=== PATIENT | male | born 1950 | race American Indian/Alaskan Native ===

== ENCOUNTER 2016-12-15 07:56 | Emergency (ER) | payer MEDICARE ==
[2016-12-15 08:26] LABS: Basophils % (Auto) 0.7 % (0.0-1.8); Eosinophils % (Auto) 1.8 % (0.0-4.3); Hematocrit 37.3 % (35.5-45.6); Hemoglobin 12.3 gm/dl (11.8-15.2); Mean Corpuscular HGB Conc 33 % (32-34); Mean Corpuscular Hemoglobin 29 pg (28-32); Mean Corpuscular Volume 88 fl (84-94); Platelet Count 241 K/mm3 (140-440); Red Blood Count 4.23 M/mm3 (3.65-5.03); Red Cell Distribution Width 15.5 % (13.2-15.2)
[2016-12-15 08:39] LABS: Anion Gap 17 mmol/L; BUN/Creatinine Ratio 11.66; Blood Urea Nitrogen 14 mg/dL (9-20); Calcium 9.4 mg/dL (8.4-10.2); Carbon Dioxide 21 mmol/L (22-30); Chloride 104.8 mmol/L (98-107); Glucose 104 mg/dL (75-100); Potassium 4.1 mmol/L (3.6-5.0); Sodium 139 mmol/L (137-145)
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
[2016-12-15] MEDS ORDERED: NACL ONE (12:34)
--- NOTE | 2016-12-15 13:04 | Cat Scan Report ---
CTA chest: History: Pain. Findings: No evidence of aortic aneurysm or pulmonary embolism. No mediastinal mass. No mediastinal or hilar adenopathy. No pleural or pericardial effusion. Bibasilar linear densities suggestive areas of scarring and /or discoid atelectasis. Centrilobular emphysema bilaterally. Multiple bulla on the mediastinal surface. Impression: No evidence of pulmonary embolism. Additional findings as detailed above.
[2016-12-15] MEDS ORDERED: TORADOL IM ONE (14:08)
--- NOTE | 2016-12-15 14:10 | Emergency Department Report ---
ED General Adult HPI - General Chief complaint: Dyspnea/Respdistress Stated complaint: ROBINSON Time Seen by Provider: 12/15/16 12:23 Source: patient Mode of arrival: Ambulatory Limitations: No Limitations - History of Present Illness Initial comments: patient reports right sided pain with coughing -: Gradual, days(s) Location: abdomen (right sided) Radiation: non-radiation Severity scale (0 -10): 1 Quality: aching Consistency: intermittent Improves with: none Worsens with: other (coughing) Associated Symptoms: cough. denies: confusion, chest pain, diaphoresis, fever/ chills, headaches, loss of appetite, malaise, nausea/vomiting, rash, seizure, shortness of breath, syncope, weakness - Related Data Home Medications Medication Instructions Recorded Confirmed Last Taken Aspirin [Adult Low Dose Aspirin EC] 81 mg PO DAILY 12/15/16 12/15/16 12/15/16 Lisinopril [Zestril] 40 mg PO DAILY 12/15/16 12/15/16 12/15/16 Metoprolol Tartrate 37.5 mg PO DAILY 12/15/16 12/15/16 12/15/16 [place]-3 Fatty Acids/Fish Oil [Fish 1 each PO DAILY 12/15/16 12/15/16 12/07/16 Oil] Simvastatin [Zocor TAB] 40 mg PO DAILY 12/15/16 12/15/16 12/15/16 Previous Rx's Medication Instructions Recorded Last Taken Type Ibuprofen [Motrin] 400 mg PO Q8H PRN #12 tablet 12/15/16 Unknown Rx Allergies Allergy/AdvReac Type Severity Reaction Status Date / Time No Known Allergies Allergy Unverified 03/08/15 07:53 ED Review of Systems ROS: Stated complaint: ROBINSON Other details as noted in HPI Other: GENERAL: No weight change, fatigue, weakness, fever, chills, or night sweats SKIN: No changes in skin or hair, no itching, no rashes, no jaundice HEAD: No trauma, headache, or visual changes EYES: No blurriness, tearing, itching, acute visual loss, conjunctival discoloration, or scleral icterus EARS: No hearing loss, tinnitus, vertigo, or earache NOSE: No rhinorrhea, stuffiness, sneezing, itching, or epistaxis MOUTH: No bleeding gums, hoarseness, sore throat, or swelling CARDIAC: No new murmur, chest pain, palpitations, dyspnea on exertion, orthopnea , PND, or edema RESPIRATORY: Coughing. No shortness of breath, wheeze, sputum production, hemoptysis, pneumonia, asthma, bronchitis, or emphysema GI: Right sided flank pain. No change in appetite, nausea, vomiting, dysphagia , change in bowel frequency, diarrhea, constipation, bleeding, hematemesis, melena, hematochezia URINARY: No frequency, urgency, polyuria, dysuria, hematuria, or incontinence MUSCULOSKELETAL: No muscle weakness, joint stiffness, decrease in range of motion, redness, swelling, tenderness NEUROLOGIC: No loss of sensation, numbness, tingling, tremors, weakness, paralysis, seizures HEMATOLOGIC: No anemia, easy bruising, bleeding, petechiae, or purpura ENDOCRINE: No hot or cold intolerance, sweating, polyuria, polydipsia or, polyphagia no thyroid problems PSYCHIATRIC: No change in mood, no anxiety, no depression ED Past Medical Hx - Past Medical History Previous Medical History?: Yes Hx Hypertension: Yes Hx Diabetes: Yes (borderline) Hx Kidney Stones: Yes Additional medical history: gout - Surgical History Past Surgical History?: Yes Hx Coronary Stent: Yes Additional Surgical History: kidney stents, BILATERAL KNEE REPLACEMENTS - Social History Smoking Status: Current Every Day Smoker Substance Use Type: Alcohol - Medications Home Medications: Home Medications Medication Instructions Recorded Confirmed Last Taken Type Aspirin [Adult Low Dose Aspirin EC] 81 mg PO DAILY 12/15/16 12/15/16 12/15/16 History Ibuprofen [Motrin] 400 mg PO Q8H PRN #12 tablet 12/15/16 Unknown Rx Lisinopril [Zestril] 40 mg PO DAILY 12/15/16 12/15/16 12/15/16 History Metoprolol Tartrate 37.5 mg PO DAILY 12/15/16 12/15/16 12/15/16 History [place]-3 Fatty Acids/Fish Oil [Fish 1 each PO DAILY 12/15/16 12/15/16 12/07/16 History Oil] Simvastatin [Zocor TAB] 40 mg PO DAILY 12/15/16 12/15/16 12/15/16 History ED Physical Exam - General Limitations: No Limitations - Other Other exam information: GENERAL: Patient in no acute distress HEAD: Normocephalic, atraumatic EYES: PERRLA, EOM intact, no scleral icterus,no conjunctival hemorrhage, visual castro and acuity wnl, NOSE: No tenderness, discharge, sinus tenderness MOUTH: No erythema, bleeding, exudate HEART: Regular rate and rhythm, no murmur, S1-S2 are auscultated, pulses are symmetric LUNGS: No wheezing, rales, rhonchi, bilateral breath sounds ABDOMEN: Normal bowel sounds, no tenderness, no rebound, no guarding, no masses , no CVA tenderness MUSCULOSKELETAL: Normal joint range of motion, no redness, no swelling, no tenderness NEUROLOGIC: GCS 15, Alert and Oriented, Cranial nerves intact, normal sensation , normal strength, normal gait, no cerebellar deficit PSYCHIATRIC: No homicidal or suicidal ideation, no anxiety, no depression, no hallucinations SKIN: Skin is warm and dry, no wounds, no rashes ED Course Vital Signs 12/15/16 12/15/16 12/15/16 08:05 12:13 12:14 Temperature 98.2 F Pulse Rate 103 H 72 80 Respiratory 24 14 Rate Blood Pressure Blood Pressure 124/77 [Left] O2 Sat by Pulse 98 95 Oximetry 12/15/16 12/15/16 12/15/16 12:16 12:18 12:20 Temperature Pulse Rate 73 77 72 Respiratory 15 17 16 Rate Blood Pressure 111/68 111/68 111/68 Blood Pressure [Left] O2 Sat by Pulse 95 97 99 Oximetry 12/15/16 12/15/16 12/15/16 12:22 12:24 12:25 Temperature Pulse Rate 68 74 Respiratory 21 20 15 Rate Blood Pressure 111/68 111/68 Blood Pressure [Left] O2 Sat by Pulse 99 100 95 Oximetry 12/15/16 12/15/16 12/15/16 12:26 12:28 12:30 Temperature Pulse Rate 76 72 75 Respiratory 27 H 15 13 Rate Blood Pressure 111/68 111/68 111/68 Blood Pressure [Left] O2 Sat by Pulse 99 98 98 Oximetry 12/15/16 12/15/16 12/15/16 12:32 12:33 12:34 Temperature Pulse Rate 69 69 72 Respiratory 18 14 22 Rate Blood Pressure 111/68 111/68 111/68 Blood Pressure [Left] O2 Sat by Pulse 99 99 98 Oximetry 12/15/16 12/15/16 12/15/16 13:06 13:08 13:10 Temperature Pulse Rate 78 73 72 Respiratory 20 20 21 Rate Blood Pressure 111/68 127/79 127/79 Blood Pressure [Left] O2 Sat by Pulse 99 99 Oximetry 12/15/16 12/15/16 12/15/16 13:12 13:14 13:16 Temperature Pulse Rate 74 72 70 Respiratory 23 21 21 Rate Blood Pressure 127/79 127/79 127/79 Blood Pressure [Left] O2 Sat by Pulse 98 98 99 Oximetry 12/15/16 12/15/16 12/15/16 13:30 14:00 14:30 Temperature Pulse Rate 72 74 73 Respiratory 18 17 23 Rate Blood Pressure 137/83 140/73 136/86 Blood Pressure [Left] O2 Sat by Pulse 94 94 93 Oximetry ED Medical Decision Making - Lab Data Result diagrams: 12/15/16 08:16 12/15/16 08:16 - EKG Data Interpretation: no acute changes - Radiology Data Radiology results: report reviewed - Medical Decision Making Patient comfortable. Updated with results. Plan discharge with outpatient follow-up. Patient agrees with plan and will return if symptoms worsen. Critical care attestation.: If time is entered above; I have spent that time in minutes in the direct care of this critically ill patient, excluding procedure time. ED Disposition Clinical Impression: Musculoskeletal strain, Coughing Disposition: DC-01 TO HOME OR SELFCARE Is pt being admited?: No Condition: Stable Instructions: Muscle Strain (ED) Prescriptions: Ibuprofen [Motrin] 400 mg PO Q8H PRN #12 tablet PRN Reason: Pain Referrals: PRIMARY CARE, [Primary Care Provider] - 2-3 Days Time of Disposition: 14:10
[2016-12-15] MEDS ORDERED: TORADOL IV ONE (14:42)
[2016-12-15 14:58] VITALS: BP 136/86
== END 2016-12-15 14:58 | disposition home or self-care (01) ==
LOC: ED 07:56
DX: S39.011A Strain of muscle, fascia and tendon of abdomen, initial encounter (principal); I10 Essential (primary) hypertension; M10.9 Gout, unspecified; F17.210 Nicotine dependence, cigarettes, uncomplicated; Z95.1 Presence of aortocoronary bypass graft; Z79.82 Long term (current) use of aspirin; Z96.653 Presence of artificial knee joint, bilateral; X58.XXXA Exposure to other specified factors, initial encounter; Y93.89 Activity, other specified; Y92.89 Other specified places as the place of occurrence of the external cause; Y99.8 Other external cause status
CPT/HCPCS: 36415; 71020; 71275; 80048; 83880; 84484; 85025; 93005; 93010; 96374; 99285; J1885; Q9967